=== PATIENT | female | born 1970 | race African-American/Black ===

== ENCOUNTER 2018-02-28 14:36 | Outpatient (CLI) | payer OTHER | END 2018-02-28 14:37 | disposition home or self-care (01) | LOC: BICMAMMO 14:36 | PROVIDERS: ATTEND Internal Medicine | DX: Z12.31 Encounter for screening mammogram for malignant neoplasm of breast (principal); Z13.820 Encounter for screening for osteoporosis | CPT/HCPCS: 77063; 77067; 77080 ==

== ENCOUNTER 2018-10-17 20:11 | Emergency (ER) | payer OTHER ==
[2018-10-17] MEDS ORDERED: Naproxen 500 MG TAB ONE (20:47)
--- NOTE | 2018-10-17 21:23 | RAD ---
LEFT FOOT: 10/17/18 Three views. HISTORY: Great toe pain and swelling. Tarsals unremarkable. Metatarsals and phalanges intact. MTP joints unremarkable. No fracture or acute abnormality identified. IMPRESSION: No acute findings. POS: [facility]
== END 2018-10-17 21:23 | disposition home or self-care (01) ==
LOC: SCSER 20:11
DX: M79.672 Pain in left foot (principal)

== ENCOUNTER 2019-01-28 14:23 | Outpatient (CLI) | payer OTHER ==
--- NOTE | 2019-01-28 15:18 | ULT ---
[facility] neck ultrasound. HISTORY: Left neck pain. Multiple longitudinal and transverse images of the left neck is obtained using a multihertz linear ar ray transducer. Real time images obtained. Normal sternocleidomastoid and internal jugular vein seen. No definite evidence of masses or lesions seen. IMPRESSION: Normal left neck soft tissue ultrasound.
--- NOTE | 2019-01-28 15:23 | RAD ---
TWO VIEWS OF THE CHEST: COMPARISON: None. HISTORY: Rib pain and chest pain for 3 weeks. FINDINGS: Two views of the chest show normal sized cardiomediastinal silhouette. There is no evidence of consol idation, mass, or pleural effusion. The bones are unremarkable. IMPRESSION: No evidence of acute cardiopulmonary disease. POS: [facility]
--- NOTE | 2019-01-28 15:24 | RAD ---
RIGHT RIB SERIES: COMPARISON: None. HISTORY: Right rib and mid back pain. FINDINGS: Three views of the right ribs show no evidence of a displaced rib fracture. No underlying pleural th ickening or pneumothorax is seen. IMPRESSION: No evidence of a displaced right rib fracture. POS: [facility]
== END 2019-01-28 14:24 | disposition home or self-care (01) ==
LOC: BICULT 14:23
PROVIDERS: ATTEND Internal Medicine
DX: M54.2 Cervicalgia (principal); R07.81 Pleurodynia
CPT/HCPCS: 71046; 76536

== ENCOUNTER 2019-03-02 15:03 | Outpatient (CLI) | payer OTHER ==
--- NOTE | 2019-03-02 15:54 | MMO ---
Bilateral MAMMO Bilat Screen [facility]. CLINICAL HISTORY: Patient is 48 years old and is seen for screening. The patient has no family history of breast cancer. The patient has no personal history of cancer. The patient has a history of right Stereotatic Biopsy in 05/2000 - benign and right Cyst Aspiration in 2002. VIEWS: The views performed were: bilateral craniocaudal with tomosynthesis and bilateral mediolateral oblique with tomosynthesis. FILMS COMPARED: The present examination has been compared to prior imaging studies performed at [facility] on 02/28/2018, and at [facility] on 01/28/2014, 02/02/2015, 02/06/2016 and 02/27/2017. MAMMOGRAM FINDINGS: Finding 1: There are stable benign appearing densities seen in both breasts. Finding 2: There are stable benign appearing calcifications seen in both breasts. There are no suspicious masses, suspicious calcifications, or new areas of architectural distortion. IMPRESSION: THERE IS NO MAMMOGRAPHIC EVIDENCE OF MALIGNANCY. A ROUTINE FOLLOW-UP MAMMOGRAM IN 1 YEAR IS RECOMMENDED. THE RESULTS OF THIS EXAM WERE SENT TO THE PATIENT. ACR BI-RADS Category 2 - Benign finding MAMMOGRAPHY NOTE: 1. A negative mammogram report should not delay a biopsy if a dominant of clinically suspicious mass is present. 2. Approximately 10% to 15% of breast cancers are not detected by mammography. 3. Adenosis and dense breasts may obscure an underlying neoplasm.
== END 2019-03-02 15:04 | disposition home or self-care (01) ==
LOC: BICMAMMO 15:03
PROVIDERS: ATTEND Internal Medicine
DX: Z12.31 Encounter for screening mammogram for malignant neoplasm of breast (principal)
CPT/HCPCS: 77063; 77067

== ENCOUNTER 2020-03-03 12:14 | Outpatient (CLI) | payer OTHER ==
--- NOTE | 2020-03-03 15:34 | RAD ---
THORACIC SPINE 3 VIEWS: HISTORY: Mid back pain. FINDINGS/IMPRESSION: No fracture, subluxation, or bone destruction is seen. There are degenerative changes in the lower c ervical spine. POS: [facility]
--- NOTE | 2020-03-03 15:38 | RAD ---
LEFT RIB SERIES: HISTORY: Left rib pain and back pain. FINDINGS/IMPRESSION: No left rib bony abnormality is seen. POS: [facility]
== END 2020-03-03 12:15 | disposition home or self-care (01) ==
LOC: BICRAD 12:14
PROVIDERS: ATTEND Internal Medicine
DX: M54.9 Dorsalgia, unspecified (principal); R07.81 Pleurodynia; M47.812 Spondylosis without myelopathy or radiculopathy, cervical region
CPT/HCPCS: 72070

== ENCOUNTER 2020-03-10 13:51 | Outpatient (CLI) | payer OTHER ==
--- NOTE | 2020-03-10 14:27 | MMO ---
Bilateral MAMMO Bilat Diag [facility]. CLINICAL HISTORY: Patient is 49 years old and is seen for diagnostic exam and pain in the left breast. The patient has no family history of breast cancer. The patient has no personal history of cancer. The patient has a history of right Stereotatic Biopsy in 05/2000 - benign and right Cyst Aspiration in 2002. VIEWS: The views performed were: bilateral craniocaudal with tomosynthesis; bilateral mediolateral oblique with tomosynthesis; and bilateral mediolateral with tomosynthesis. FILMS COMPARED: The present examination has been compared to prior imaging studies performed at [facility] on 02/28/2018 and 03/02/2019, and at [facility] on 02/06/2016 and 02/27/2017. This study has been interpreted with the assistance of computer-aided detection. MAMMOGRAM FINDINGS: The breasts are heterogeneously dense, which could obscure a lesion on mammography. Benign calcifications are noted bilaterally. Right biopsy clips. There are no suspicious masses, suspicious calcifications, or new areas of architectural distortion. IMPRESSION: THERE IS NO MAMMOGRAPHIC EVIDENCE OF MALIGNANCY. A ROUTINE FOLLOW-UP MAMMOGRAM IN 1 YEAR IS RECOMMENDED. THE RESULTS OF THIS EXAM WERE SENT TO THE PATIENT. ACR BI-RADS Category 2 - Benign finding MAMMOGRAPHY NOTE: 1. A negative mammogram report should not delay a biopsy if a dominant of clinically suspicious mass is present. 2. Approximately 10% to 15% of breast cancers are not detected by mammography. 3. Adenosis and dense breasts may obscure an underlying neoplasm. Reported by: JT DAVIS MD Electonically Signed: [id number]
== END 2020-03-10 13:52 | disposition home or self-care (01) ==
LOC: BICMAMMO 13:51
PROVIDERS: ATTEND Internal Medicine
DX: N64.4 Mastodynia (principal)
CPT/HCPCS: 77066; G0279

== ENCOUNTER 2021-03-10 11:08 | Outpatient (CLI) | payer OTHER | END 2021-03-10 11:09 | disposition home or self-care (01) | LOC: BICMAMMO 11:08 | PROVIDERS: ATTEND Internal Medicine | DX: Z12.31 Encounter for screening mammogram for malignant neoplasm of breast (principal); Z80.3 Family history of malignant neoplasm of breast | CPT/HCPCS: 77063; 77067 ==

== ENCOUNTER 2022-03-12 12:59 | Outpatient (CLI) | payer BC | END 2022-03-12 13:00 | disposition home or self-care (01) | LOC: BICMAMMO 12:59 | PROVIDERS: ATTEND Internal Medicine | DX: Z12.31 Encounter for screening mammogram for malignant neoplasm of breast (principal); Z80.3 Family history of malignant neoplasm of breast; Z91.89 Other specified personal risk factors, not elsewhere classified | CPT/HCPCS: 77063; 77067 ==

== ENCOUNTER 2022-03-28 13:05 | Outpatient (CLI) | payer BC | END 2022-03-28 13:06 | disposition home or self-care (01) | LOC: BICMAMMO 13:05 | PROVIDERS: ATTEND Internal Medicine | DX: N60.02 Solitary cyst of left breast (principal) ==

== ENCOUNTER 2023-03-20 15:05 | Outpatient (CLI) | payer BC | END 2023-03-20 15:06 | disposition home or self-care (01) | LOC: BICMAMMO 15:05 | PROVIDERS: ATTEND Internal Medicine | DX: Z12.31 Encounter for screening mammogram for malignant neoplasm of breast (principal); R92.8 Other abnormal and inconclusive findings on diagnostic imaging of breast | CPT/HCPCS: 77063; 77067 ==

== ENCOUNTER 2024-03-24 14:11 | Outpatient (CLI) | payer BC | END 2024-03-24 14:12 | disposition home or self-care (01) | LOC: BICMAMMO 14:11 | PROVIDERS: ATTEND Internal Medicine | DX: Z12.31 Encounter for screening mammogram for malignant neoplasm of breast (principal); Z13.820 Encounter for screening for osteoporosis; M85.851 Other specified disorders of bone density and structure, right thigh; Z91.89 Other specified personal risk factors, not elsewhere classified; Z80.3 Family history of malignant neoplasm of breast; Z78.0 Asymptomatic menopausal state | CPT/HCPCS: 77063; 77067; 77080 ==

== ENCOUNTER 2024-10-12 06:56 | Outpatient (CLI) | payer BC | END 2024-10-12 06:57 | disposition home or self-care (01) | LOC: BICULT 06:56 | PROVIDERS: ATTEND Internal Medicine Gastroenterology | DX: K92.1 Melena (principal); R10.13 Epigastric pain; K64.8 Other hemorrhoids | CPT/HCPCS: 76700 ==